=== PATIENT | female | born 1990 | race Asian ===

== ENCOUNTER 2020-12-22 10:48 | Observation (INO) | payer MEDICAID ==
[~2020-12-22] VITALS: Ht 160 cm; Wt 51.3 kg
[2020-12-22] MEDS ORDERED: LACTATED RINGERS 1,000 ML IV SCH (12:00)
== END 2020-12-22 13:40 | disposition home or self-care (01) ==
LOC: EDBD → 8 EST LDRP 10:48 → 8 EST A/PP 11:11
PROVIDERS: ADMIT Obstetrics & Gynecology; ATTEND Obstetrics & Gynecology
DX: Z34.93 Encounter for supervision of normal pregnancy, unspecified, third trimester (principal); Z3A.37 37 weeks gestation of pregnancy
CPT/HCPCS: 59025; 76815; 76818; G0378; 99281

== ENCOUNTER 2020-12-26 13:14 | Observation (INO) | payer MEDICAID ==
[~2020-12-26] VITALS: Ht 160 cm; Wt 59.0 kg
== END 2020-12-26 15:20 | disposition home or self-care (01) ==
LOC: 8 EST LDRP 13:14
PROVIDERS: ADMIT Obstetrics & Gynecology; ATTEND Obstetrics & Gynecology
DX: Z34.93 Encounter for supervision of normal pregnancy, unspecified, third trimester (principal); Z3A.38 38 weeks gestation of pregnancy
CPT/HCPCS: 59025; 76805; 76818; G0378

== ENCOUNTER 2020-12-28 19:48 | Observation (INO) | payer MEDICAID ==
[~2020-12-28] VITALS: Ht 160 cm; Wt 53.5 kg
[2020-12-28] MEDS ORDERED: PREN1TAB78 MT (20:15)
== END 2020-12-28 20:30 | disposition home or self-care (01) ==
LOC: 8 EST LDRP 19:48
PROVIDERS: ADMIT Obstetrics & Gynecology; ATTEND Obstetrics & Gynecology
DX: Z34.93 Encounter for supervision of normal pregnancy, unspecified, third trimester (principal); Z3A.38 38 weeks gestation of pregnancy
CPT/HCPCS: 59025; G0378; 99281

== ENCOUNTER 2020-12-31 19:19 | Observation (INO) | payer MEDICAID ==
[~2020-12-31] VITALS: Ht 160 cm; Wt 53.5 kg
[~2020-12-31 19:19] MED LIST: PREN1TAB78 MT
[2020-12-31] MEDS ORDERED: PREN-182 PO (19:55)
== END 2020-12-31 21:43 | disposition home or self-care (01) ==
LOC: 8 EST LDRP 19:19
PROVIDERS: ADMIT Obstetrics & Gynecology; ATTEND Obstetrics & Gynecology
DX: Z34.93 Encounter for supervision of normal pregnancy, unspecified, third trimester (principal); Z3A.38 38 weeks gestation of pregnancy
CPT/HCPCS: 59025; G0378

== ENCOUNTER 2021-01-02 18:50 | Observation (INO) | payer MEDICAID ==
[~2021-01-02] VITALS: Ht 160 cm; Wt 53.5 kg
== END 2021-01-02 21:48 | disposition home or self-care (01) ==
LOC: 8 EST LDRP 18:50
PROVIDERS: ADMIT Obstetrics & Gynecology; ATTEND Obstetrics & Gynecology
DX: Z34.93 Encounter for supervision of normal pregnancy, unspecified, third trimester (principal); Z3A.39 39 weeks gestation of pregnancy
CPT/HCPCS: 59025; 76815; 76818; G0378

== ENCOUNTER 2021-01-09 00:17 | Inpatient (IN) | payer MEDICAID ==
[~2021-01-09] VITALS: Ht 160 cm; Wt 54.0 kg
[2021-01-09] MEDS ORDERED: PREN-182 PO (01:25)
[2021-01-09] MEDS ORDERED: METHYLERGONOVINE MALEATE 0.2 MG/ML IM PRN (01:30)
[2021-01-09] MEDS ORDERED: LIDOCAINE HCL 1% 20ML VIAL (Pyxis) INJ INFIL SCH (01:30)
[2021-01-09] MEDS ORDERED: BUTORPHANOL TARTRATE 2 MG/ML VIAL IV PRN (01:30)
[2021-01-09] MEDS ORDERED: NALOXONE HCL 0.4 MG/ML 1ML VIAL IM PRN (01:30)
[2021-01-09] MEDS ORDERED: MISOPROSTOL 100MCG TABLET VG SCH (01:30)
[2021-01-09] MEDS ORDERED: CARBOPROST TROMETHAMINE 250 MCG/ML AMPUL IM PRN (01:30)
[2021-01-09] MEDS ORDERED: MISOPROSTOL 100MCG TABLET VG PRN (02:00)
[2021-01-09] MEDS: LACTATED RINGERS 1,000 ML IV SCH ×3 (02:40→18:22)
[2021-01-09 03:20] LABS: INR 0.9; PARTIAL THROMBOPLASTIN TIME 28.5 sec (23.4-31.0); PROTHROMBIN TIME 9.8 sec (9.6-11.0)
[2021-01-09 03:27] LABS: BASOPHILS % 0.8 % (0.0-2.0); EOSINOPHILS % 1.3 % (0.0-5.0); HEMOGLOBIN. 11.7 g/dL (12.0-16.0); MEAN CORPUSCULAR HEMOGLOBIN 31.1 pg (28.0-32.0); MEAN CORPUSCULAR VOLUME 90.1 fL (81.0-99.0); MEAN PLATELET VOLUME 8.4 fl (7.4-10.4); MONOCYTES % 7.6 % (2.0-8.0); NEUTROPHILS % 63.3 % (40.0-76.0); PLATELET 197 x1000/uL (130-400); RED BLOOD CELL COUNT 3.77 mill/uL (4.2-5.4); RED CELL DISTRIBUTION WIDTH 13.8 % (11.6-14.6)
[2021-01-09 03:35] LABS: CLARITY URINE CLEAR (CLEAR); COLOR URINE YELLOW (YELLOW); KETONES URINE NEGATIVE (NEGATIVE); LEUKOCYTE ESTERASE URINE 2+ (NEGATIVE); NITRITE URINE NEGATIVE (NEGATIVE); OCCULT BLOOD URINE NEGATIVE (NEGATIVE); PROTEIN URINE NEGATIVE (NEGATIVE); SPECIFIC GRAVITY URINE 1.009 (1.005-1.030); UROBILINOGEN URINE 0.2 E.U./dL (0.2-1.0)
[2021-01-09 03:50] LABS: *COCAINE SCREEN URINE NEGATIVE (NEGATIVE); METHADONE URINE SCREEN NEGATIVE (NEGATIVE); OPIATES URINE SCREEN NEGATIVE (NEGATIVE)
[2021-01-09 03:51] LABS: *AMPHETAMINES SCREEN URINE NEGATIVE (NEGATIVE); *BARBITURATES SCREEN URINE NEGATIVE (NEGATIVE); *BENZODIAZEPINES SCREEN URINE NEGATIVE (NEGATIVE); CANNABINOID URINE SCREEN NEGATIVE (NEGATIVE); PHENCYCLIDINE URINE SCREEN NEGATIVE (NEGATIVE)
[2021-01-09 03:58] LABS: HEPATITIS B SURFACE ANTIGEN NEGATIVE
[2021-01-09] MEDS ORDERED: ROPIVACAINE HCL/PF EPIDURAL 200 ML EP SCH (06:45)
[2021-01-09] MEDS ORDERED: DEXT 5%/LR + PITOCIN 20UNITS/L 1,000 ML IV ONE (14:15)
[2021-01-09] MEDS ORDERED: FENTANYL CITRATE/PF 50MCG/ML 2ML VIAL ONE (17:59)
[2021-01-09] MEDS ORDERED: DEXT 5%/LR + PITOCIN 20UNITS/L 1,000 ML IV SCH ×2 (20:30→20:45)
[2021-01-09] MEDS ORDERED: IBUPROFEN 400MG TABLET PO PRN (20:45)
[2021-01-09] MEDS ORDERED: BENZOCAINE/LANOLIN/ALOE VERA SPRAY TOP PRN (20:45)
[2021-01-09] MEDS ORDERED: ONDANSETRON HCL 4MG/2ML INJ IV ONE (20:45)
[2021-01-09] MEDS ORDERED: RHO(D) IMMUNE GLOBULIN 300 MCG/SYR IM PRN (20:45)
[2021-01-09 22:45] VITALS: BP 111/69
[2021-01-09 23:20] VITALS: BP 122/78
[2021-01-10 00:15] VITALS: BP 119/80
[2021-01-10] MEDS: IBUPROFEN 800MG TABLET PO PRN ×2 (02:50→14:58)
[2021-01-10 03:53] VITALS: BP 104/75
[2021-01-10] MEDS ORDERED: EPHEDRINE SULFATE 50MG/ML VIAL ONE (06:45)
[2021-01-10] MEDS ORDERED: LIDOCAINE HCL 2%/EPINEPHRINE 1:100,000 20 ML VIAL INFIL ONE (06:45)
[2021-01-10 08:00] VITALS: BP 100/67
[2021-01-10] MEDS ORDERED: INFLUENZA VACCINE 05/PF 0.5 ML VIAL IM ONE (08:00)
[2021-01-10] MEDS ORDERED: TETANUS, DIPHTHERIA, PERTUSSIS VAC/PF 0.5ML (>7YR OLD) IM ONE (09:00)
[2021-01-10 09:51] LABS: BASOPHILS % 0.3 % (0.0-2.0); EOSINOPHILS % 0.5 % (0.0-5.0); HEMATOCRIT. 35.2 % (36.0-48.0); HEMOGLOBIN. 11.8 g/dL (12.0-16.0); MEAN CORPUSCULAR HEMOGLOBIN 30.6 pg (28.0-32.0); MEAN CORPUSCULAR VOLUME 91.5 fL (81.0-99.0); MEAN PLATELET VOLUME 8.4 fl (7.4-10.4); MONOCYTES % 5.4 % (2.0-8.0); NEUTROPHILS % 78.8 % (40.0-76.0); PLATELET 187 x1000/uL (130-400); RED BLOOD CELL COUNT 3.85 mill/uL (4.2-5.4); RED CELL DISTRIBUTION WIDTH 13.7 % (11.6-14.6)
[2021-01-10 16:30] VITALS: BP 96/60
[2021-01-10 20:00] VITALS: BP 90/60
[2021-01-11] MEDS: IBUPROFEN 800MG TABLET PO PRN (01:01)
[2021-01-11 04:15] VITALS: BP 94/61
[2021-01-11 07:25] VITALS: BP 112/81
== END 2021-01-11 13:20 | disposition home or self-care (01) | DRG 560 ==
LOC: 8 EST LDRP 00:17 → OBSVTOIN 00:17 → 8EST 23:14
PROVIDERS: ADMIT Obstetrics & Gynecology; ATTEND Obstetrics & Gynecology
PROC: 10D07Z6 Extraction of Products of Conception, Vacuum, Via Natural or Artificial Opening (ICD-10-PCS; principal; 2021-01-09)
PROC: 3E0R3BZ Introduction of Anesthetic Agent into Spinal Canal, Percutaneous Approach (ICD-10-PCS; 2021-01-09)
PROC: 00HU33Z Insertion of Infusion Device into Spinal Canal, Percutaneous Approach (ICD-10-PCS; 2021-01-09)
PROC: 0W8NXZZ Division of Female Perineum, External Approach (ICD-10-PCS; 2021-01-09)
PROC: 3E0P7VZ Introduction of Hormone into Female Reproductive, Via Natural or Artificial Opening (ICD-10-PCS; 2021-01-09)
PROC: 3E033VJ Introduction of Other Hormone into Peripheral Vein, Percutaneous Approach (ICD-10-PCS; 2021-01-09)
DX: O48.0 Post-term pregnancy (principal); Z20.822 Contact with and (suspected) exposure to COVID-19; O69.81X0 Labor and delivery complicated by cord around neck, without compression, not applicable or unspecified; Z3A.40 40 weeks gestation of pregnancy; Z37.0 Single live birth
CPT/HCPCS: 36415; 80305; 81003; 85025; 86592; 86703; 86762; 86850; 86900; 87340; 87426; 90686; 90715; J2405; J2590; J2795; J3010; J3490; A4315